=== PATIENT | female | born 1955 | race Caucasian/White ===

== ENCOUNTER → 2016-11-26 | Outpatient (CLI) | payer BC ==
[~2016-11-26] MED LIST: CALTRATE 600 +1 EAC1 PO; CLARITIN D 12 H1 TAB PO; HUMIBID LA (MU600 MG PO; MULTI VITAMIN1 EACH PO; PRILOSEC OTC20 MG PO; VITAMIN D1000 UNI1 PO
== END | disposition disaster alternative care site (69) ==
LOC: GLAB 07:40 → GRAD 12-20 → GLAB 12-20
DX: E04.2 Nontoxic multinodular goiter (principal); E05.90 Thyrotoxicosis, unspecified without thyrotoxic crisis or storm